=== PATIENT | female | born 1965 | race Caucasian/White ===

== ENCOUNTER → 2024-03-21 14:02 | Outpatient (REF) | payer BC, SELFPAY | LOC: HWRAD 14:02 | PROVIDERS: ATTENDING PHYSICIAN Family Medicine | DX: Z91.89 Other specified personal risk factors, not elsewhere classified (principal) | CPT/HCPCS: 77080 ==

== ENCOUNTER → 2024-03-30 14:53 | Outpatient (REF) | payer BC, SELFPAY | LOC: HWWDC 14:53 | PROVIDERS: ATTENDING PHYSICIAN Obstetrics & Gynecology; FAMILY PHYSICIAN Family Medicine | DX: Z12.31 Encounter for screening mammogram for malignant neoplasm of breast (principal) | CPT/HCPCS: 77063; 77067 ==

== ENCOUNTER → 2025-05-21 14:31 | Outpatient (REF) | payer OTHER, SELFPAY | LOC: HWRAD 14:31 | PROVIDERS: ATTENDING PHYSICIAN Student in an Organized Health Care Education/Training Program | DX: M81.0 Age-related osteoporosis without current pathological fracture (principal) | CPT/HCPCS: 77080 ==